=== PATIENT | female | born 1970 | race Caucasian/White ===

== ENCOUNTER 2021-06-25 13:09 | Emergency (ER) | payer OTHER, SELFPAY ==
[~2021-06-25 13:09] MED LIST: Iopamidol 370 76% 100 ML VIAL ONE
[2021-06-25 13:47] LABS: #Basophils 0.1 thou/uL (0.0-0.2); #Lymphocytes 4.7 thou/uL (1.20-3.40); #Monocytes 0.5 thou/uL (0.11-0.59); #Neutrophils 7.3 thou/uL (1.40-6.50); %Basophils 0.5 % (0.0-1.0); %Lymphocytes 37.5 % (21.0-51.0); %Monocytes 4.3 % (0.0-10.0); %Neutrophils 57.7 % (42.0-75.0); Hemoglobin 13.4 g/dL (12.0-16.0); Mean Corpuscular HGB CONC 32.3 g/dL (32.0-36.0); Mean Corpuscular Hemoglobin 30.9 pg (27.0-31.0); Mean Corpuscular Volume 95.6 fL (78.0-98.0); Mean Platelet Volume 8.8 fL (7.4-10.4); Platelet Count 231 thou/uL (130-400); RBC Distribution Width 12.5 % (11.5-14.5); Red Blood Cell (RBC) Count 4.35 mill/uL (4.20-5.40); White Blood Cell (WBC) Count 12.6 thou/uL (4.8-10.8)
[2021-06-25 14:01] LABS: ALT (SGPT) 34 U/L (8-55); AST (SGOT) 39 U/L (5-34); Albumin 3.7 g/dL (3.5-5.0); Alkaline Phosphatase 59 U/L (40-110); Anion Gap 19 mmol/L (10-20); BUN (Urea Nitrogen) 9 mg/dL (7.0-18.7); Bilirubin, Total 0.5 mg/dL (0.2-1.2); Calc. Creatinine Clearance 0 mL/min (70-130); Calcium 8.5 mg/dL (7.8-10.44); Carbon Dioxide 19 mmol/L (22-29); Chloride 101 mmol/L (98-107); Globulin 3.9 g/dL (2.4-3.5); Glucose 132 mg/dL (70-105); Protein, Total 7.6 g/dL (6.0-8.3); Sodium 136 mmol/L (136-145)
[2021-06-25] MEDS ORDERED: Ibuprofen 200 MG TAB ONE (14:10)
[2021-06-25] MEDS ORDERED: Sodium Chloride 0.9% 1,000 ML ONE ×2 (14:10→17:38)
[2021-06-25] MEDS ORDERED: Ondansetron PF 4 MG/2 ML Vial ONE (14:10)
[2021-06-25 14:19] LABS: Potassium 2.7 mmol/L (3.5-5.1)
[2021-06-25 14:38] LABS: Magnesium 1.6 mg/dL (1.6-2.6)
[2021-06-25] MEDS ORDERED: Potassium Chloride 20 MEQ/100 ML PREMIX BAG ONE (14:58)
[2021-06-25] MEDS ORDERED: Potassium Chloride 20 MEQ TAB ONE (14:59)
== END 2021-06-25 19:38 | disposition short-term general hospital (02) ==
LOC: NAV ERS 13:09
DX: U07.1 COVID-19 (principal); J12.82 Pneumonia due to coronavirus disease 2019; E87.6 Hypokalemia; Z79.899 Other long term (current) drug therapy
CPT/HCPCS: 71045; 71275; 80053; 83735; 84484; 85025; 85379; 93005; 94760; 96365; 96375; J2405; J3480; J7050; Q9967